=== PATIENT | female | born 1940 | race Caucasian/White ===

== ENCOUNTER 2016-12-01 10:05 | Day surgery (SDC) | payer MEDICARE, OTHER ==
[~2016-12-01] VITALS: Ht 167.6 cm; Wt 71.0 kg
[~2016-12-01 10:05] MED LIST: 0.9% Sodium Chloride 1,000 ML IV PRN; ASPI-973 PO; BIOT5CAP9 PO; CALC-761 PO; CELE-67 PO; CHOL5000 PO; COLE1TAB2 PO; EZET10TA PO; FLUO60GE9 TOP; GLIP5TAB21 PO; HUM100IN3 SUBQ; INSU100I SUBCUTA079; LACT1TAB11 PO; LETR2.5T4 PO; LOSA50TA3 PO; MULT1CAP33 PO; OMEG100020 PO; OMEP20CA11 PO; PALB125C PO; PRAV40TA PO; PROC10TA PO; ROB500 PO; Sodium Chloride LOK Flush 10 mL Syringe IV PRN; TOLT4CAP13 PO; VERA120T5 PO; VIT1TABL83 PO; ZOLE4INF IV; fentaNYL-PF 50 mCg/mL 2 mL Inj IVPUSH PRN
[2016-12-01 10:36] VITALS: BP 124/72; PULSE 81; RESP 14; O2SAT 98
[2016-12-01] MEDS ORDERED: AMLO2.5T PO (10:46)
[2016-12-01] MEDS ORDERED: CEPH500C PO (10:46)
[2016-12-01 12:43] VITALS: BP 100/44; PULSE 77; RESP 14; O2SAT 98
[2016-12-01 12:53] VITALS: BP 104/52; PULSE 66; RESP 16; O2SAT 98
[2016-12-01 13:03] VITALS: BP 123/60; PULSE 72; RESP 16; O2SAT 99
[2016-12-01 13:13] VITALS: BP 113/42; PULSE 68; RESP 16; O2SAT 92
--- NOTE | 2016-12-01 13:16 | ENDO ---
[address] [address] ENDOSCOPY PROCEDURE PATIENT: UZMA ZAVALA : 1940 MR#: [id number] ADMIT: 12/01/2016 JOB ID: [id number] DATE: 12/01/2016 PRIMARY PROVIDER: Triston Rothman M.D. PROCEDURE: Flexible sigmoidoscopy (failed colonoscopy). INDICATIONS: This is a 76-year-old female with a family history of colon cancer in her dad and a personal history of colon polyps who has had trouble with significant constipation. Fortunately of late, she has responded to the bowel regimen that I described in my note from September 30, 2016. EQUIPMENT: PCF H 180 AL. SEDATION: 1. 7 mg Versed. 2. 150 mcg fentanyl. COMPLICATIONS: None identified. BOWEL PREPARATION: Distally it was excellent. COMPLICATIONS: None identified. PROCEDURAL INFORMATION: After the risks and benefits were explained, written and verbal informed consent was obtained. The patient was brought into the endoscopy suite and placed into the left lateral decubitus position. Sedation was achieved using the above-stated medications with the addition of oxygen via nasal cannula. A digital rectal examination was accomplished. Mild internal hemorrhoids noted. The scope was introduced into the rectum and advanced under direct visualization to approximately 40 cm from the anal verge. This was an extremely difficult navigation even to this depth. This required numerous patient position changes and applications of pelvic pressure. The patient had a very angulated tortuous rectosigmoid region. Once I got through this, we in essence were halted at about 40 cm secondary to more significant cornering. I did not feel that I could safely push through this loop blindly in the corner and we, therefore, abandoned our efforts to cecum. The scope was slowly withdrawn to carefully examine the mucosa for any defects or lesions. Multiple direct views were made through the dentate line for exclusion of pathology. The colon was decompressed. The scope removed from the patient who tolerated the procedure reasonably well. FINDINGS: Extremely difficult navigation secondary to tortuosity and scope looping in the distal sigmoid. Failed navigation as a consequence. There was some mild diverticulosis noted. No significant polyps or mass lesions seen in the distal part of the colon. ENDOSCOPIC DIAGNOSES: 1. Failed navigation. 2. Mild diverticulosis. 3. Twisty difficult navigation. 4. Hemorrhoids. RECOMMENDATIONS: Considering personal and family history, completion of the colon screening experience would be prudent. 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 The patient will be offered a virtual colonography today or tomorrow. If she elects to not pursue this, then within the next six months or so, I would recommend a virtual colonography for completion of the examination.
== END 2016-12-01 23:59 | disposition home or self-care (01) ==
LOC: END 10:05
PROVIDERS: ATTEND Internal Medicine Gastroenterology
DX: K59.00 Constipation, unspecified (principal); K57.30 Diverticulosis of large intestine without perforation or abscess without bleeding; K64.8 Other hemorrhoids; Z86.010 Personal history of colon polyps; Z80.0 Family history of malignant neoplasm of digestive organs; C50.919 Malignant neoplasm of unspecified site of unspecified female breast; Z92.21 Personal history of antineoplastic chemotherapy; I10 Essential (primary) hypertension; K55.9 Vascular disorder of intestine, unspecified; K58.9 Irritable bowel syndrome, unspecified; E11.42 Type 2 diabetes mellitus with diabetic polyneuropathy; I73.00 Raynaud's syndrome without gangrene; E78.5 Hyperlipidemia, unspecified; E55.9 Vitamin D deficiency, unspecified; Z79.82 Long term (current) use of aspirin; Z79.84 Long term (current) use of oral hypoglycemic drugs; Z79.4 Long term (current) use of insulin
CPT/HCPCS: 45330; 99153; G0500; J7030